=== PATIENT | female | born 1975 | race Caucasian/White ===

== ENCOUNTER 2021-06-26 15:39 | Emergency (ER) | payer MEDICAID, MEDICARE, OTHER ==
[~2021-06-26] VITALS: Ht 177.8 cm; Wt 65.0 kg
[~2021-06-26 15:39] MED LIST: SERT-434 PO
[2021-06-26 15:44] VITALS: BP 154/87
[2021-06-26] MEDS ORDERED: SERT50TA PO (17:22)
== END 2021-06-26 17:34 | disposition home or self-care (01) ==
LOC: ER 15:41
DX: F43.12 Post-traumatic stress disorder, chronic (principal); F12.90 Cannabis use, unspecified, uncomplicated; F32.9 Major depressive disorder, single episode, unspecified; Z88.8 Allergy status to other drugs, medicaments and biological substances; Z79.899 Other long term (current) drug therapy
CPT/HCPCS: 99283

== ENCOUNTER 2021-07-04 06:55 | Emergency (ER) | payer MEDICARE ==
[~2021-07-04] VITALS: Ht 177.8 cm; Wt 67.4 kg
[~2021-07-04 06:55] MED LIST changes: +SERT50TA PO
[2021-07-04 07:01] VITALS: BP 107/75
--- NOTE | 2021-07-04 08:04 | NUR ---
Patient reports PTSD exacerbation. 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 When asked how we can help in ER, patient stated "just talking to someone helps." Patient given phone to call family.
[2021-07-04 08:06] LABS: URINE HCG NEGATIVE (NEG)
[2021-07-04 08:35] LABS: CLARITY,URINE CLEAR (Clear); COLOR,URINE YELLOW (Yellow); GLUCOSE, URINE NEGATIVE (Neg); KETONES,URINE TRACE mg/dl (Neg); LEUKOCYTE ESTERASE ,URINE NEGATIVE (Neg); NITRITES, URINE NEGATIVE (Neg); OCCULT BLOOD,URINE NEGATIVE (Neg); PROTEIN,URINE NEGATIVE (Neg); UROBILINOGEN,URINE 0.2 E.U/dL (0.2-1.0)
[2021-07-04 08:36] LABS: UA COLLECTION TYPE CLN CATCH MIDSTREAM
[2021-07-04] MEDS ORDERED: sertraline 50mg tablet PO ONE (08:50)
[2021-07-04 09:07] LABS: URINE AMPHETAMINE SCREEN NEGATIVE (Neg); URINE BARBITUATE SCREEN NEGATIVE (Neg); URINE BENZODIAZEPINES SCREEN NEGATIVE (Neg); URINE CANNABINOID SCREEN POSITIVE (Neg); URINE COCAINE SCREEN NEGATIVE (Neg); URINE METHADONE SCREEN NEGATIVE (Neg); URINE OPIATE SCREEN NEGATIVE (Neg); URINE PHENCYCLIDINE SCREEN NEGATIVE (Neg)
== END 2021-07-04 09:26 | disposition home or self-care (01) ==
LOC: ER 06:56
DX: F43.12 Post-traumatic stress disorder, chronic (principal); F43.10 Post-traumatic stress disorder, unspecified; F32.9 Major depressive disorder, single episode, unspecified; F12.90 Cannabis use, unspecified, uncomplicated; Z88.8 Allergy status to other drugs, medicaments and biological substances; Z79.899 Other long term (current) drug therapy
CPT/HCPCS: 80305; 81003; 81025; 99283

== ENCOUNTER 2021-07-05 10:00 | Emergency (ER) | payer MEDICARE ==
[~2021-07-05] VITALS: Ht 177.8 cm; Wt 68.2 kg
--- NOTE | 2021-07-05 14:36 | NUR ---
BROUGHT PT TO ROOM, PT STATES THAT SHE IS "EXHAUSTED" AND THROWING BELONGINGS IN ROOM.
--- NOTE | 2021-07-05 15:30 | NUR ---
Primary RN unable to assess patient prior dc.
== END 2021-07-05 15:44 | disposition left against medical advice (07) ==
LOC: ER 10:01
DX: F43.12 Post-traumatic stress disorder, chronic (principal); F32.9 Major depressive disorder, single episode, unspecified; F12.90 Cannabis use, unspecified, uncomplicated; Z88.8 Allergy status to other drugs, medicaments and biological substances; Z79.899 Other long term (current) drug therapy
CPT/HCPCS: 99281